=== PATIENT | female | born 1965 | race Hispanic/Latino ===

== ENCOUNTER 2018-08-31 10:14 | Emergency (ER) | payer OTHER ==
[~2018-08-31] VITALS: Ht 167.6 cm; Wt 84.5 kg
[2018-08-31 11:43] VITALS: BP 162/100
== END 2018-08-31 11:25 | disposition home or self-care (01) ==
LOC: FSED 10:14
DX: T16.1XXA Foreign body in right ear, initial encounter (principal); E11.9 Type 2 diabetes mellitus without complications
CPT/HCPCS: 99283